=== PATIENT | female | born 1985 | race Two or more races ===

== ENCOUNTER 2019-02-24 08:00 | Inpatient (IN) | payer OTHER ==
[~2019-02-24] VITALS: Ht 160 cm; Wt 61.2 kg
== END 2019-02-27 13:04 | disposition home or self-care (01) | DRG 582 ==
LOC: O/R 02-26 06:50 → SURH 02-26 06:50 → CIR.AMB 02-26 07:00 → SURH 02-26 08:00 → EDSTATUS 02-26 08:00 → SURH 02-26 16:17
PROVIDERS: Plastic Surgery; ADMIT Surgery
PROC: 0HHT0NZ Insertion of Tissue Expander into Right Breast, Open Approach (ICD-10-PCS; 2019-02-26)
PROC: 07T50ZZ Resection of Right Axillary Lymphatic, Open Approach (ICD-10-PCS; principal; 2019-02-26 07:00)
PROC: 0HTT0ZZ Resection of Right Breast, Open Approach (ICD-10-PCS; 2019-02-26 07:00)
DX: C50.411 Malignant neoplasm of upper-outer quadrant of right female breast (principal); C77.3 Secondary and unspecified malignant neoplasm of axilla and upper limb lymph nodes; Z17.0 Estrogen receptor positive status [ER+]

== ENCOUNTER 2019-04-05 09:51 | Outpatient (CLI) | payer OTHER | END 2019-04-05 09:53 | disposition home or self-care (01) | LOC: SONOGRAMA 09:51 | DX: M75.91 Shoulder lesion, unspecified, right shoulder (principal) ==

== ENCOUNTER 2019-04-16 06:36 | Day surgery (SDC) | payer OTHER | END 2019-04-16 17:40 | disposition home or self-care (01) | LOC: CIR.AMB 06:36 | DX: C50.411 Malignant neoplasm of upper-outer quadrant of right female breast (principal); Z90.11 Acquired absence of right breast and nipple; N65.1 Disproportion of reconstructed breast | CPT/HCPCS: 19342; 19330; 19366; C1789 ==

== ENCOUNTER 2020-01-15 09:21 | Emergency (ER) | payer OTHER ==
[~2020-01-15] VITALS: Ht 160 cm; Wt 56.2 kg
[2020-01-15] MEDS ORDERED: ANASTROZOLE1 MG (10:38)
== END 2020-01-15 11:12 | disposition home or self-care (01) ==
LOC: ER 09:21
DX: R21 Rash and other nonspecific skin eruption (principal); T78.49XA Other allergy, initial encounter; X58.XXXA Exposure to other specified factors, initial encounter